=== PATIENT | male | born 1990 | race Caucasian/White ===

== ENCOUNTER 2019-11-09 22:25 | Emergency (ER) | payer SELFPAY ==
[2019-11-09 22:28] VITALS: BP 128/95; PULSE 111; RESP 10; TEMP 36.6; O2SAT 98
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
[2019-11-09 22:46] VITALS: BP 118/87; PULSE 94; RESP 19; O2SAT 98
--- NOTE | 2019-11-10 | PC.NURSE ---
this rn went to d/c pt. pt drowsy and has slurred speech. this rn communicated this to md, states to watch pt for a while before d/c. 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
[2019-11-10 00:06] VITALS: BP 105/64; PULSE 74; RESP 18; O2SAT 95
[2019-11-10 01:21] VITALS: BP 110/81; PULSE 81; RESP 16; TEMP 36.8; O2SAT 96
== END 2019-11-10 01:24 | disposition home or self-care (01) ==
PROVIDERS: Emergency Provider Emergency Medicine
DX: T40.4X1A Poisoning by other synthetic narcotics, accidental (unintentional), initial encounter (principal); S01.112A Laceration without foreign body of left eyelid and periocular area, initial encounter
CPT/HCPCS: 12011; 99283

== ENCOUNTER 2019-11-10 13:09 | Emergency (ER) | payer SELFPAY ==
[2019-11-10 13:11] VITALS: BP 131/94; PULSE 70; RESP 18; TEMP 36.1; O2SAT 100
[2019-11-10 13:30] VITALS: BP 117/59; PULSE 90; RESP 18; TEMP 36.6; O2SAT 100
--- NOTE | 2019-11-10 13:33 | ECG_ITS ---
Measurements Intervals [place] Rate: 73 P: 12 WV: 124 QRS: 82 QRSD: 93 T: 65 QT: 397 QTc: 439 Interpretive Statements SINUS RHYTHM WITH SINUS ARRHYTHMIA BASELINE WANDER- AVR, AVL, AVF NORMAL ECG Electronically Signed On 11-10-2019 15:41:12 [employer] by Diego Maddox D.O.
--- NOTE | 2019-11-10 13:33 | ED.PSYCH ---
HPI - Psych General Chief Complaint: Psychiatric Symptoms <Samantha Sanchez MD - Last Filed: 11/10/19 23:35> Stated Complaint: SI <Samantha Sanchez MD - Last Filed: 11/10/19 23:35> Time Seen by Provider: 11/10/19 13:30 <Samantha Sanchez MD - Last Filed: 11/10/19 23:35> Source: patient <Samantha Sanchez MD - Last Filed: 11/10/19 23:35> Mode of arrival: ambulatory <Samantha Sanchez MD - Last Filed: 11/10/19 23:35> Limitations: no limitations <Samantha Sanchez MD - Last Filed: 11/10/19 23:35> History of Present Illness HPI Narrative: The pt is a 28 y/o male who presents to the ED with c/o SI since this morning. The pt states that he was just discharged from [facility] last night after overdosing on fentanyl. He states that he has been using every day or every other day for the past 5 months, with his most recent use being last night. The pt has never thought about killing himself until this morning, but says that he has been in and out of half-way and that it has been hard for him for the past couple of months. He was clean for about one year when he lived in [place], but states that he moved here because his grandmother is getting old and staying at an assisted living facility in [place]. The pt denies HI, ABD pain, nausea, vomiting, rash, sores, or vision changes. He states that he injects the fentanyl when using and that he also smokes cigarettes. The pt explains that the stitches on his head are both from hitting his head after falling or passing out. <Samantha Sanchez MD - Last Filed: 11/10/19 23:35> MD complaint: suicidal ideation <Samantha Sanchez MD - Last Filed: 11/10/19 23:35> Onset (ago): hour(s) (this morning) <Samantha Sanchez MD - Last Filed: 11/10/19 23:35> Context: recent drug abuse <Samantha Sanchez MD - Last Filed: 11/10/19 23:35> Associated symptoms: denies other symptoms and other <Samantha Sanchez MD - Last Filed: 11/10/19 23:35> Related Data Home Medications: Home Medications Medication Instructions Recorded Confirmed No Home Medications 11/10/19 11/10/19 <Samantha Sanchez MD - Last Filed: 11/10/19 23:35> Allergies/Adverse Reactions: Allergies Allergy/AdvReac Type Severity Reaction Status Date / Time No Known Allergies Allergy Verified 11/10/19 13:51 <Samantha Sanchez MD - Last Filed: 11/10/19 23:35> Review of Systems Review of Systems: Narrative: EYES: Denies visual changes. GASTROINTESTINAL: Denies abdominal pain, nausea, or vomiting. SKIN: Denies rash or sores. PSYCHIATRIC: Reports SI. Denies HI. <Samantha Sanchez MD - Last Filed: 11/10/19 23:35> All systems reviewed & are unremarkable except as noted in HPI and below <Samantha Sanchez MD - Last Filed: 11/10/19 23:35> PMFSH Past Medical History Medical History: Medical History Asthma <Samantha Sanchez MD - Last Filed: 11/10/19 23:35> Surgical History Surgical History: Surgical History No significant past surgical history <Samantha Sanchez MD - Last Filed: 11/10/19 23:35> Social History Social History: Social History Smoking packs per day: 0.5 Smoking cigarettes per day: 10.0 Years smoked: 13 Smoking pack-years: 6.50 Smoking status: Current every day smoker Substance use type: marijuana, heroin, opiates and other Other substance usage details: Fentanyl Gender identity (if verbalized by the patient): Male <Samantha Sanchez MD - Last Filed: 11/10/19 23:35> Exam Narrative: Exam Narrative: GENERAL: Well-appearing, well-nourished, and in no acute distress. HEAD: Normocephalic. Stitches near eyebrows bilaterally. EYES: PERRLA and EOMI. ENT: Nares clear, no rhinorrhea or epistaxis. Mucous membranes moist. NECK: Supple. CHEST: Clear to
[2019-11-10 13:56] LABS: Basophils Percent Auto 0.4 % (0.2-1.2); Eosinophils Absolute Auto 0.4 K/mm3 (0-0.3); Eosinophils Percent Auto 4.8 % (0-4.4); Hematocrit 45.3 % (42.0-52.0); Hemoglobin 14.8 g/dL (14.0-18.0); Immature Granulocyte Absolute 0.02 K/mm3 (0.00-0.031); Immature Granulocyte Percent A 0.2 % (0-0.5); Lymphocytes Absolute Auto 1.89 K/mm3 (0.9-3.2); Lymphocytes Percent Auto 23.2 % (18.3-44.2); Mean Corpuscular HGB Conc 32.7 g/dl (32-36); Mean Corpuscular Hemoglobin 30.6 pg (26-34); Mean Corpuscular Volume 93.6 fl (80-100); Mean Platelet Volume 9.2 fl (7.4-10.4); Monocytes Absolute Auto 0.4 K/mm3 (0.1-0.6); Monocytes Percent Auto 4.7 % (2.6-8.5); Neutrophils Absolute Auto 5.4 K/mm3 (1.3-6.7); Neutrophils Percent Auto 66.7 % (45.5-73.1); Platelet Count Result 323 k/mm3 (150-375); Red Blood Count 4.84 M/mm3 (4.6-6.20); Red Cell Distribution Width 13.2 % (11.5-14.5); White Blood Count 8.1 K/mm3 (4.5-10.0)
[2019-11-10 14:04] LABS: Add Urine Microscopic? YES; Appearance Urine Clear (Clear); Bacteria Urine Trace /hpf; Bilirubin Urine Negative (Negative); Blood Urine Negative (Negative); Color Urine Yellow (Yellow); Glucose Urine UA Negative (Negative); Ketones Urine Negative (Negative); Leukocyte Esterase Ur Negative LEU/UL (Negative); Mucus Urine Heavy /lpf; Nitrate Urine Negative (Negative); Protein Urine 1+ mg/dL (Negative); Specific Grav Ur 1.021 (1.001-1.035)
[2019-11-10 14:11] LABS: Blood Urea Nitrogen 11 mg/dL (9-20); Calcium 9.8 mg/dL (8.4-10.2); Carbon Dioxide 27 mmol/L (22-30); Chloride 101 mmol/L (98-107); Estimated CRCL calculation 139 ml/min; Estimated Glomerular Filt Rate > 60; Ethanol < 10 mg/dL (<10); Glucose 112 mg/dL (75-110); Potassium 4.3 mmol/L (3.4-5.0); Sodium 141 mmol/L (137-145)
[2019-11-10 14:13] LABS: Barbiturate Screen Urine Negative (Negative); Benzodiazepines Screen Urine Negative (Negative)
[2019-11-10 14:21] LABS: Cannabinoid Screen Urine Negative (Negative); Cocaine Screen Urine Positive (Negative); Methadone Screen Urine Negative (Negative); Opiate Screen Urine Negative (Negative); Phencyclidine Screen Urine Negative (Negative)
[2019-11-10 14:25] LABS: Amphetamine Screen Urine Positive (Negative)
[2019-11-10 14:42] LABS: Thyroid Stimulating Hormone 0.435 uIU/mL (0.465-4.680)
--- NOTE | 2019-11-10 16:06 | PC.NURSE ---
called dietary and ordered dinner tray for pt
[2019-11-10 16:07] VITALS: BP 112/60; PULSE 67; RESP 15; O2SAT 100
--- NOTE | 2019-11-10 16:52 | PC.NURSE ---
den with crisis reports that [facility] currrently full and not accepting pt at this time
--- NOTE | 2019-11-10 17:40 | PC.NURSE ---
Per [facility], not able to accept pt due to no beds available.
--- NOTE | 2019-11-10 17:52 | PC.NURSE ---
Returned call from [facility], requesting patient information and currently speaking with pt via telephone.
[2019-11-10 18:41] VITALS: BP 137/50; PULSE 70; RESP 18; O2SAT 100
--- NOTE | 2019-11-10 19:45 | PC.NURSE ---
ritesh from [facility] calls to state that facility psych md will not accept pt. md feels pt will be better served by substance abuse facility.
--- NOTE | 2019-11-10 20:17 | PC.NURSE ---
pt requesting to take a shower...with tech and security coordinator pt to room 344 for shower without incident
[2019-11-10 22:28] LABS: Magnesium 1.9 mg/dL (1.6-2.3)
--- NOTE | 2019-11-10 22:45 | PC.NURSE ---
pt information faxed to [facility]
[2019-11-10 23:02] VITALS: BP 117/81; PULSE 88; RESP 16; O2SAT 99
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
--- NOTE | 2019-11-11 05:00 | PC.NURSE ---
[facility] FROM [facility] WILL CONTINUE TO LOOK FOR BEDS THIS MORNING.
[2019-11-11 06:19] VITALS: BP 123/85; PULSE 73; RESP 14; O2SAT 100
[2019-11-11 09:04] VITALS: BP 112/72; PULSE 72; RESP 16; TEMP 37; O2SAT 98
--- NOTE | 2019-11-11 10:00 | PC.NURSE ---
Paxed paperwork to [facility] at this time
--- NOTE | 2019-11-11 12:00 | PC.NURSE ---
Pt moved from room 13 to , sitter at bedside
--- NOTE | 2019-11-11 12:29 | PC.NURSE ---
Faxed paperwork to [facility] in [place] [id number]
[2019-11-11 13:49] VITALS: BP 115/75; PULSE 74; RESP 16; TEMP 36.6; O2SAT 98
--- NOTE | 2019-11-11 13:59 | PC.NURSE ---
Pt accepted to [facility]. EMS called, ETA [id number]
[2019-11-11 15:44] VITALS: BP 138/78; PULSE 78; RESP 16; O2SAT 100
== END 2019-11-11 15:45 ==
PROVIDERS: Emergency Medicine; Emergency Provider Emergency Medicine
DX: R45.851 Suicidal ideations (principal); F15.10 Other stimulant abuse, uncomplicated; F14.10 Cocaine abuse, uncomplicated; F17.210 Nicotine dependence, cigarettes, uncomplicated
CPT/HCPCS: 36415; 80048; 80307; 81001; 83735; 84443; 85025; 87086; 93005; 99285